=== PATIENT | male | born 1935 | race Caucasian/White ===

== ENCOUNTER → 2016-08-01 | Outpatient (CLI) | payer MEDICARE ==
[2016-05-10 11:57] VITALS: BP 108/71
[~2016-08-01] MED LIST: ALLO100T PO; ASPI325T4 PO; DOCU-27 PO; LISI1TAB3 PO; METO25TA4 PO; OMEP20CA9 PO; OXYB5TAB7 PO; OXYC1TAB7 PO; SIMV80TA3 PO
--- NOTE | 2016-08-01 11:34 | RAD ---
EXAM: Lumbar spine, 3 views. HISTORY: Fusion. COMPARISON: 05/09/2016. FINDINGS: Frontal, lateral and coned sacral views of the lumbar spine are obtained. There is instrumented posterior spinal fusion at L3 through L5. 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 There is degenerative endplate remodeling predominantly at L2-L3 and L5-S1. There is grade 1 anterolisthesis of L4 on L5. There is an ectatic atherosclerotic abdominal aorta. There are severe degenerative changes involving both hips. IMPRESSION: 1. Instrumented fusion at L3-L5. 2. Multilevel degenerative change, predominantly at L2-L3 and L5-S1. 3. Bycw-ru-jlzjowzx rotatory levoscoliosis and slight rightward lateral translation of L2 on L3.
== END | disposition home or self-care (01) ==
LOC: RAD 11:04
PROVIDERS: ATTEND Nurse Practitioner Adult Health
DX: M47.897 Other spondylosis, lumbosacral region (principal); I70.0 Atherosclerosis of aorta; I77.811 Abdominal aortic ectasia; M41.86 Other forms of scoliosis, lumbar region; Z98.1 Arthrodesis status
CPT/HCPCS: 72100

== ENCOUNTER → 2016-10-12 | Outpatient (CLI) | payer MEDICARE ==
[2016-05-10 11:57] VITALS: BP 108/71
--- NOTE | 2016-10-12 15:26 | CARD ---
APPROVED REPORT EXAM: Two-dimensional and M-mode echocardiogram with Doppler and color Doppler. Other Information Quality : FairHR: 75bpm Rhythm : NSR INDICATION Cardiomyopathy Surgery/Intervention CABD DIMENSIONS Left Atrium(2D)4.0 (1.6-4.0cm)IVSd1.1 (0.7-1.1cm) Aortic Root(2D)3.4 (2.0-3.7cm)LVDd3.4 (3.9-5.9cm) LVOT Diameter2.1 (1.8-2.4cm)PWd1.1 (0.7-1.1cm) LVDs2.3 (2.5-4.0cm)FS (%) 31.7 % SV28.6 mlLVEF(%)60.9 (>50%) Aortic Valve AoV Peak Piyush.178.4cm/sAoV VTI28.9cm AO Peak GR.12.7mmHgLVOT Peak Piyush.123.2cm/s LVOT VTI 23.59cmAO Mean GR.7mmHg HUNTER (VMAX)2.56ka5LWZ (VTI)2.81cm2 Mitral Valve MV E Aurufimv20.8cm/sMV DECEL QDRI577qz MV A Rduzkzci545.1cm/sMV OHH28nw E/A Ratio0.6MVA (PHT)2.77cm2 TDI E/Lateral E'7.4E/Medial E'10.7 Pulmonary Valve PV Peak Imvopvhm214.0cm/sPV Peak Grad.5mmHg Tricuspid Valve TR P. Tudwiwiz213rc/sRAP QDTHMUKU5rzHj TR Peak Gr.10mmHg Pulmonary Vein S1 Ahpkohoo39.3cm/sD2 Rgswhhew44.6cm/s LEFT VENTRICLE The left ventricle cavity is small. There is normal left ventricular wall thickness. Left ventricle s ystolic function is normal. The Ejection Fraction is 55%. There is normal LV segmental wall motion. T issue Doppler imaging reveals abnormal left ventricular diastolic dysfunction. Transmitral Doppler fl ow pattern is Grade I-abnormal relaxation pattern. RIGHT VENTRICLE The right ventricle is normal size. There is normal right ventricular wall thickness. The right ventr icular systolic function is normal. ATRIA The left atrium size is normal. The right atrium size is normal. The interatrial septum is intact wit h no evidence for an atrial septal defect or patent foramen ovale as noted on 2-D or Doppler imaging. AORTIC VALVE The aortic valve is calcified but opens well. Doppler and Color Flow revealed trace aortic regurgitat ion. There is no significant aortic valvular stenosis. MITRAL VALVE The mitral valve is normal in structure and function. There is no mitral valve stenosis. Doppler and Color Flow revealed no mitral valve regurgitation noted. TRICUSPID VALVE The tricuspid valve is normal in structure and function. Doppler and Color Flow revealed trace tricus pid regurgitation. The PA pressure was estimated at 13 mmHg. There is no tricuspid valve stenosis. PULMONIC VALVE PV not well visualized. Doppler and Color Flow revealed no pulmonic valvular regurgitation. There is no pulmonic valvular stenosis. GREAT VESSELS The aortic root is normal in size. Normal pulmonary venous flow (Doppler). The IVC was not well visua lized. PERICARDIAL EFFUSION There is no pleural effusion. There is no evidence of significant pericardial effusion. Critical Notification Critical Value: No <Conclusion> Left ventricle systolic function is normal. The Ejection Fraction is 55%. There is normal LV segmental wall motion. Transmitral Doppler flow pattern is Grade I-abnormal relaxation pattern. Trace aortic regurgitation. Trace tricuspid regurgitation. The PA pressure was estimated at 13 mmHg. There is no evidence of significant pericardial effusion.
== END | disposition home or self-care (01) ==
LOC: ECHO 12:36
PROVIDERS: ATTEND Internal Medicine Cardiovascular Disease
DX: I25.5 Ischemic cardiomyopathy (principal); I35.1 Nonrheumatic aortic (valve) insufficiency; I07.1 Rheumatic tricuspid insufficiency
CPT/HCPCS: 93306

== ENCOUNTER → 2017-07-14 | Outpatient (CLI) | payer MEDICARE ==
[2016-05-10 11:57] VITALS: BP 108/71
[~2017-07-14] MED LIST changes: -ASPI325T4 PO; +ASPI325T8 PO; +BUPIVACAINE 0.5% 50 ML VIAL. IJ ONE; +DOCU-109 PO; -DOCU-27 PO; +methylPREDNISolone ACETATE 80 MG/ML VIAL. IM ONE
--- NOTE | 2017-07-14 09:11 | RAD ---
Indication: Left hip pain. Patient presents for left hip injection. The patient was brought to the fluoroscopy suite and placed on the table in the supine position. The skin of the left hip was prepped and draped in the usual sterile fashion. A small amount of 1% lidocaine was utilized for local anesthesia. A 20-gauge spinal needle was advanced into the left hip and placed with its tip in an intracapsular location at the femoral head neck junction laterally. 80 mg of Depo-Medrol and 4 mL of 0.5% Sensorcaine was injected. The needle was withdrawn and hemostasis was obtained. Patient tolerated the procedure well and left the department in stable condition. 0.6 minutes of fluoroscopy time was utilized. A single image was obtained. 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 There is subchondral cyst formation and marginal osteophytes present. Patient did have a joint effusion with joint fluid returned through the injection needle. Impression: Left hip injection of steroid and Sensorcaine solution, using fluoroscopy.
== END | disposition home or self-care (01) ==
LOC: RAD 07:46
PROVIDERS: ATTEND Nurse Practitioner Gerontology
DX: M16.12 Unilateral primary osteoarthritis, left hip (principal)
CPT/HCPCS: 20605; 77002; J1040; J3490

== ENCOUNTER → 2017-09-26 | Outpatient (CLI) | payer MEDICARE | END | disposition home or self-care (01) | LOC: ECHO 12:24 | DX: I25.10 Atherosclerotic heart disease of native coronary artery without angina pectoris (principal) | CPT/HCPCS: 93306 ==

== ENCOUNTER → 2017-12-20 | Outpatient (CLI) | payer MEDICARE ==
[2017-12-20 14:15] LABS: ADD MAN DIFF? NO
[2017-12-20 14:18] LABS: BASO # 0.1 x10^3/uL (0.0-0.2); BASO % 1 % (0-3); EOS # 0.1 x10^3/uL (0.0-0.7); EOS % 1 % (0-3); HEMATOCRIT 42.7 % (39.0-53.0); HEMOGLOBIN 14.7 g/dL (13.0-17.5); LYMPH # 1.6 x10^3/uL (1.0-4.8); LYMPH % 24 % (24-48); MEAN CORPUSCULAR HEMOGLOBIN 32 pg (25-35); MEAN CORPUSCULAR HGB CONC 34 g/dL (31-37); MEAN CORPUSCULAR VOLUME 92 fL (79-100); MONO # 0.6 x10^3/uL (0.0-1.1); MONO % 9 % (0-9); NEUT # 4.4 x10^3uL (1.8-7.7); NEUT % 65 % (31-73); PLATELET COUNT 196 x10^3/uL (140-400); RED BLOOD COUNT 4.66 x10^6/uL (4.30-5.70); RED CELL DISTRIBUTION WIDTH 14.3 % (11.5-14.5); WHITE BLOOD COUNT 6.8 x10^3/uL (4.0-11.0)
[2017-12-20 14:25] LABS: BILIRUBIN,URINE NEGATIVE (NEG); CLARITY,URINE CLEAR; COLOR,URINE YELLOW; GLUCOSE,URINE NEGATIVE (NEG); NITRITE,URINE NEGATIVE (NEG); PH,URINE 5.5; PROTEIN,URINE NEGATIVE (NEG-TRACE)
[2017-12-20 14:27] LABS: ALBUMIN 3.6 g/dL (3.4-5.0); ANION GAP 8 (6-14); BLOOD UREA NITROGEN 33 mg/dL (8-26); CALCIUM 8.9 mg/dL (8.5-10.1); CARBON DIOXIDE 26 mmol/L (21-32); CHLORIDE 105 mmol/L (98-107); CREATININE 1.6 mg/dL (0.7-1.3); GFR 41.4; GLUCOSE 106 mg/dL (70-99); POTASSIUM 4.5 mmol/L (3.5-5.1); SODIUM 139 mmol/L (136-145)
[2017-12-20 14:48] LABS: BACTERIA,URINE 0 /HPF (0-FEW)
[2017-12-21 06:19] LABS: MRSA BY PCR Negative (Negative)
== END | disposition home or self-care (01) ==
LOC: SURGPAT 12:40
DX: Z01.818 Encounter for other preprocedural examination (principal); M16.12 Unilateral primary osteoarthritis, left hip
CPT/HCPCS: 36415; 71046; 80048; 81001; 82040; 85025; 87086; 87641; 93005

== ENCOUNTER → 2018-08-02 | Outpatient (CLI) | payer MEDICARE ==
[2018-01-05 11:00] VITALS: BP 101/62
[~2018-08-02] MED LIST changes: -BUPIVACAINE 0.5% 50 ML VIAL. IJ ONE; +OMEP20CA10 PO; -OMEP20CA9 PO; +SIMV80TA17 PO; -SIMV80TA3 PO; -methylPREDNISolone ACETATE 80 MG/ML VIAL. IM ONE
--- NOTE | 2018-08-02 15:26 | RAD ---
MR#: [id number] Date of Study: 08/02/2018 Ordering Physician: KALEB MC, Referring Physician: KALEB MC, Tech: LAWANDA Villavicencio, RDMS, RTR APPROVED REPORT Patient Location : OUT-PATIENT Indications Lower Extremity Edema : Bilateral Grayscale images of the bilateral greater and lesser saphenous veins do not reveal any obvious eviden ce of thrombus. The right great saphenous vein measures approximately 4 mm and does not show any evidence of reflux. The left great saphenous vein measures approximately 5 mm and does not show any evidence of reflux. Bilateral lesser saphenous veins do not show any evidence of reflux. Past History GSV Harvesting for CABG : Left GSV Medications Aspirin Critical Notification Critical Value: No <Conclusion> No evidence of reflux in the bilateral greater and lesser saphenous veins. Signed by : Mitul Amin, Electronically Approved : 08/02/2018 15:24:24
== END | disposition home or self-care (01) ==
LOC: KCIC US 11:48
PROVIDERS: ATTEND Internal Medicine Cardiovascular Disease
DX: R60.0 Localized edema (principal)
CPT/HCPCS: 93970

== ENCOUNTER → 2019-02-21 | Outpatient (CLI) | payer MEDICARE ==
[2018-01-05 11:00] VITALS: BP 101/62
--- NOTE | 2019-02-21 11:07 | CARD ---
MR#: [id number] Date of Study: 02/21/2019 Ordering Physician: KALEB MC, Referring Physician: KALEB MC, Tech: Chantelle Sanchez APPROVED REPORT EXAM: Two-dimensional and M-mode echocardiogram with Doppler and color Doppler. Other Information Quality : FairHR: 67bpm Technically limited study due to body habitus. INDICATION CAD Surgery/Intervention CABG: RISK FACTORS Hypertension 2D DIMENSIONS Left Atrium(2D)4.4 (1.6-4.0cm)IVSd1.4 (0.7-1.1cm) Aortic Root(2D)3.7 (2.0-3.7cm)LVDd4.5 (3.9-5.9cm) LVOT Diameter2.1 (1.8-2.4cm)PWd1.4 (0.7-1.1cm) LVDs2.8 (2.5-4.0cm)FS (%) 37.7 % SV62.4 mlLVEF(%)67.9 (>50%) Aortic Valve AoV Peak Piyush.215.4cm/sAoV VTI43.9cm AO Peak GR.18.6mmHgLVOT Peak Piyush.106.0cm/s LVOT VTI 24.62cmAO Mean GR.10mmHg HUNTER (VMAX)1.11bw0BCT (VTI)1.93cm2 Mitral Valve MV E Cajpyxfm94.6cm/sMV DECEL RENN582jp MV A Jmiixybx96.5cm/sMV ZDU39zl E/A Ratio0.8MVA (PHT)2.26cm2 TDI E/Lateral E'8.0E/Medial E'9.8 Pulmonary Valve PV Peak Mhheofgh476.2cm/sPV Peak Grad.6mmHg Tricuspid Valve RAP VDVIGRYV1xdTg Pulmonary Vein S1 Lapvlpli95.1cm/sD2 Bkaqhgam82.2cm/s PVa bpdvtcwk007fzgf LEFT VENTRICLE The left ventricle is normal size. There is mild to moderate concentric left ventricular hypertrophy. The left ventricular systolic function is normal and the ejection fraction is within normal range. T he Ejection Fraction is 50-55%. There is normal LV segmental wall motion. Transmitral Doppler flow pa ttern is Grade I-abnormal relaxation pattern. RIGHT VENTRICLE The right ventricle is normal size. There is normal right ventricular wall thickness. The right ventr icular systolic function is normal. ATRIA The left atrium is mildly dilated. The right atrium size is normal. The interatrial septum is intact with no evidence for an atrial septal defect or patent foramen ovale as noted on 2-D or Doppler imagi ng. AORTIC VALVE The aortic valve is calcified and displays decreased opening. Doppler and Color Flow revealed no sign ificant aortic regurgitation. There is no significant aortic valvular stenosis. MITRAL VALVE Mitral annular calcification is mild. There is no evidence of mitral valve prolapse. There is no mitr al valve stenosis. Doppler and Color Flow revealed no mitral valve regurgitation noted. TRICUSPID VALVE The tricuspid valve is normal in structure and function. Doppler and Color Flow revealed trace tricus pid regurgitation. There is no tricuspid valve stenosis. PULMONIC VALVE The pulmonic valve is not well visualized. Doppler and Color Flow revealed no pulmonic valvular regur gitation. There is no pulmonic valvular stenosis. GREAT VESSELS The aortic root is normal in size. The IVC was not well visualized. PERICARDIAL EFFUSION There is no evidence of significant pericardial effusion. Critical Notification Critical Value: No <Conclusion> The left ventricular systolic function is normal and the ejection fraction is within normal range. Th e Ejection Fraction is 50-55%. There is normal LV segmental wall motion. Technically difficult study. Signed by : Mitul Amin, Electronically Approved : 02/21/2019 11:06:47
== END | disposition home or self-care (01) ==
LOC: ECHO 09:34
PROVIDERS: ATTEND Internal Medicine Cardiovascular Disease
DX: I08.0 Rheumatic disorders of both mitral and aortic valves (principal); I25.10 Atherosclerotic heart disease of native coronary artery without angina pectoris
CPT/HCPCS: 93306

== ENCOUNTER 2019-08-19 15:18 | Emergency (ER) | payer MEDICARE ==
[~2019-08-19] VITALS: Ht 177.8 cm; Wt 109.0 kg
[~2019-08-19 15:18] MED LIST changes: +LISI1TAB23 PO; -LISI1TAB3 PO; -OMEP20CA10 PO; +OMEP20CA16 PO; +OXYB5TAB10 PO; -OXYB5TAB7 PO
[2019-08-19 17:27] LABS: BASO # 0.1 x10^3/uL (0.0-0.2); BASO % 1 % (0-3); EOS # 0.1 x10^3/uL (0.0-0.7); EOS % 1 % (0-3); HEMATOCRIT 43.1 % (39.0-53.0); HEMOGLOBIN 14.1 g/dL (13.0-17.5); LYMPH # 1.8 x10^3/uL (1.0-4.8); LYMPH % 21 % (24-48); MEAN CORPUSCULAR HEMOGLOBIN 30 pg (25-35); MEAN CORPUSCULAR HGB CONC 33 g/dL (31-37); MEAN CORPUSCULAR VOLUME 92 fL (79-100); MONO # 0.7 x10^3/uL (0.0-1.1); MONO % 8 % (0-9); NEUT # 6.1 x10^3/uL (1.8-7.7); NEUT % 70 % (31-73); PLATELET COUNT 240 x10^3/uL (140-400); RED BLOOD COUNT 4.71 x10^6/uL (4.30-5.70); RED CELL DISTRIBUTION WIDTH 14.9 % (11.5-14.5); WHITE BLOOD COUNT 8.8 x10^3/uL (4.0-11.0)
[2019-08-19 17:37] LABS: PROTHROMBIN TIME PATIENT 12.8 SEC (11.7-14.0)
--- NOTE | 2019-08-19 17:43 | RAD ---
CT HEAD WO CONTRAST History: Weakness Comparison: None. Technique: Noncontrast CT imaging was performed of the head. Exposure: One or more of the following individualized dose reduction techniques were utilized for this examination: 1. Automated exposure control 2. Adjustment of the mA and/or kV according to patient size 3. Use of iterative reconstruction technique. Findings: No intracranial hemorrhage. No mass effect. No hydrocephalus. Mild brain parenchymal volume loss. Mild foci of decreased attenuation within the hemispheric white matter, most often due to chronic microvascular ischemia. Imaged orbits are unremarkable. Imaged paranasal sinuses and mastoid air cells are clear. No acute calvarial fracture. Impression: 1. No acute intracranial abnormality. Electronically signed by: Maycol Alberto DO (08/19/2019 5:40 PM) [facility]
[2019-08-19 17:46] LABS: CALCIUM 8.9 mg/dL (8.5-10.1); CREATININE 1.5 mg/dL (0.7-1.3); GFR 44.5; POTASSIUM 4.8 mmol/L (3.5-5.1)
--- NOTE | 2019-08-19 17:53 | PHYS DOC ---
Past Medical History Past Medical History: GERD, High Cholesterol, Hypertension, Other Additional Past Medical Histor: GOUT Past Surgical History: Hip Replacement Alcohol Use: None Adult General Chief Complaint Chief Complaint: WEAKNESS/GENERALIZED HPI HPI Patient is a 83 year old history of hypertension, dyslipidemia, gout, GERD who presents with complaint of weakness. Patient complaining of generalized weakness and not feeling good for the last 1 week as a constant problem that gradually getting worse. Patient states he has problems with his balance in the morning that gradually improved as day goes on without headache, focal neuro deficit, fever and chills, chest pain, shortness of breath, URI symptoms, diarrhea and constipation, urinary symptom, nausea and vomiting. Review of Systems Review of Systems Constitutional: Denies fever or chills [] Eyes: Denies change in visual acuity, redness, or eye pain [] HENT: Denies nasal congestion or sore throat [] Respiratory: Denies cough or shortness of breath [] Cardiovascular: No additional information not addressed in HPI [] GI: Denies abdominal pain, nausea, vomiting, bloody stools or diarrhea [] : Denies dysuria or hematuria [] Musculoskeletal: Denies back pain or joint pain [] Integument: Denies rash or skin lesions [] Neurologic: Denies headache, focal weakness or sensory changes [] Endocrine: Denies polyuria or polydipsia [] All other systems were reviewed and found to be within normal limits, except as documented in this note. Allergies Allergies Allergies Coded Allergies Type Severity Reaction Last Updated Verified No Known Drug Allergies 01/02/18 No Physical Exam Physical Exam Constitutional: Well developed, well nourished, no acute distress, non-toxic appearance. [] HENT: Normocephalic, atraumatic, bilateral external ears normal, oropharynx moist, no oral exudates, nose normal. [] Eyes: PERRLA, EOMI, conjunctiva normal, no discharge. [] Neck: Normal range of motion, no tenderness, supple, no stridor. [] Cardiovascular:Heart rate regular rhythm, no murmur [] Lungs & Thorax: Bilateral breath sounds clear to auscultation [] Abdomen: Bowel sounds normal, soft, no tenderness, no masses, no pulsatile masses. [] Skin: Warm, dry, no erythema, no rash. [] Back: No tenderness, no CVA tenderness. [] Extremities: No tenderness, no cyanosis, no clubbing, ROM intact, no edema. [] Neurologic: Alert and oriented X 3, normal motor function, normal sensory function, no focal deficits noted. [] Psychologic: Affect normal, judgement normal, mood normal. [] Current Patient Data Vital Signs Vital Signs Date Time Temp Pulse Resp B/P (MAP) Pulse Ox O2 Delivery O2 Flow Rate FiO2 08/19/19 16:30 98.0 77 17 179/92 (121) 98 Room Air 98.0 Lab Values Laboratory Tests Test 08/19/19 16:45 White Blood Count 8.8 x10^3/uL (4.0-11.0) Red Blood Count 4.71 x10^6/uL (4.30-5.70) Hemoglobin 14.1 g/dL (13.0-17.5) Hematocrit 43.1 % (39.0-53.0) Mean Corpuscular Volume 92 fL (79-100) Mean Corpuscular Hemoglobin 30 pg (25-35) Mean Corpuscular Hemoglobin Concent 33 g/dL (31-37) Red Cell Distribution Width 14.9 % (11.5-14.5) H Platelet Count 240 x10^3/uL (140-400) Neutrophils (%) (Auto) 70 % (31-73) Lymphocytes (%) (Auto) 21 % (24-48) L Monocytes (%) (Auto) 8 % (0-9) Eosinophils (%) (Auto) 1 % (0-3) Basophils (%) (Auto) 1 % (0-3) Neutrophils # (Auto) 6.1 x10^3/uL (1.8-7.7) Lymphocytes # (Auto) 1.8 x10^3/uL (1.0-4.8) Monocytes # (Auto) 0.7 x10^3/uL (0.0-1.1) Eosinophils # (Auto) 0.1 x10^3/uL (0.0-0.7) Basophils # (Auto) 0.1 x10^3/uL (0.0-0.2) Prothrombin Time 12.8 SEC (11.7-14.0) Prothrombin Time INR 1.0 (0.8-1.1) Activated Partial Thromboplast Time 26 SEC (24-38) Laboratory Tests 08/19/19 16:45 EKG EKG EKG interpreted by me. EKG at 1541 showed sinus treated with rate of 69, prolonged UT at 2:30, left fourth axis, RVH with repolarization abnormality, no acute ST and T-wave elevation. Radiology/Procedures Radiology/Procedures [] Course & Med Decision Making Course & Med Decision Making Pertinent Labs and Imaging studies are pending. Evaluation of patient in ER showed 83-year-old male patient with complaining of generalized weakness for 1 week without other symptom. Labs and CT and chest x- ray is pending. Sign out given to at 1800 for further evaluation and final disposition. Discussed current findings and plan with patient and family, who acknowledge understanding and agreement. Dragon Disclaimer Dragon Disclaimer This electronic medical record was generated, in whole or in part, using a voice recognition dictation system. Departure Departure Impression: Primary Impression: Generalized weakness Referrals: BERNADETTE RINCON MD (PCP) MICHELLE ERAZO MD Aug 19, 2019 17:53
[2019-08-19 18:03] LABS: ALBUMIN 3.5 g/dL (3.4-5.0); TOTAL PROTEIN 6.9 g/dL (6.4-8.2)
--- NOTE | 2019-08-19 18:15 | RAD ---
PORTABLE CHEST 1V History: Weakness. Comparison: December 20, 2017 Findings: Multifocal calcified pleural plaques. No consolidation. No pleural effusion. Prior median sternotomy. Unchanged heart size. No pneumothorax. Impression: 1. No acute cardiopulmonary process. 2. Multifocal calcified pleural plaques, can be seen with prior asbestos exposure. Electronically signed by: Maycol Alberto DO (08/19/2019 6:12 PM) [facility]
[2019-08-19 20:23] LABS: BILIRUBIN,URINE NEGATIVE (NEG); CLARITY,URINE CLEAR; COLOR,URINE YELLOW; NITRITE,URINE NEGATIVE (NEG); PH,URINE 5.5; PROTEIN,URINE NEGATIVE (NEG-TRACE)
[2019-08-19 20:33] LABS: BACTERIA,URINE 0 /HPF (0-FEW); RBC,URINE OCC /HPF (0-2); SQUAMOUS EPITHELIAL CELL,UR FEW /LPF
[2019-08-19 21:51] VITALS: BP 126/80
--- NOTE | 2019-08-20 07:08 | EKG ---
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
== END 2019-08-19 21:57 | disposition home or self-care (01) ==
LOC: ER 15:18
DX: R53.1 Weakness (principal); R51 Headache; E78.00 Pure hypercholesterolemia, unspecified; I10 Essential (primary) hypertension; M10.9 Gout, unspecified; K21.9 Gastro-esophageal reflux disease without esophagitis
CPT/HCPCS: 36415; 70450; 71045; 80053; 81001; 82550; 83605; 83690; 83735; 83880; 84484; 85025; 85610; 85730; 87040; 87086; 93005; 99285-25

== ENCOUNTER → 2019-08-22 | Outpatient (CLI) | payer MEDICARE ==
[2019-08-19 21:51] VITALS: BP 126/80
[~2019-08-22] MED LIST changes: +REGADENOSON 0.4 MG/5 ML DISP.SYRIN. IV ONE
--- NOTE | 2019-08-26 11:58 | RAD ---
MR#: [id number] Date of Study: 08/22/2019 Ordering Physician: KALEB MC, Referring Physician: SHALOM DONOVAN Tech: SAMANTHA Bush, ARRT (R) (N) APPROVED REPORT Test Type: Pharmacological Stress Nurse/Tech: Marsha Damon R.N. Test Indications: CAD Cardiac History: Hypertension. Bypass Medications: See Electronic Medical Record Medical History: See Electronic Medical Record Resting ECG: NSR with RBBB. Occ PVC Resting Heart Rate: 68 bpm Resting Blood Pressure: 137/66mmHg Pretest Chest Pain: No chest pain Nurse/Tech Notes S1S2, lungs sound clear Consent: The procedure was explained to the patient in lay terms. Informed consent was witnessed. Jorge eout was entered into [employer]. History and Stress Test performed by Marsha Damon R.N. Pharm. Details Pharmacologic stress testing was performed using 0.4mg per 5ml of regadenoson given intravenously ove r 7-10 seconds. Stress Symptoms No chest pain or symptoms. POST EXERCISE Reason for Termination: Infusion complete Target HR: 114 Max HR: 80 bpm Max Blood Pressure: 147/58mmHg Blood Pressure response to exercise: Normal blood pressure response during stress. Chest Pain: No. Arrhythmia: Yes. occ. PVC ST Change: No. INTERPRETATION Stress EKG Conclusion: Baseline EKG showed sinus rhythm. No ischemic changes at peak stress. Few PV C's without any significant arrhythmias. Imaging Protocol IMAGE PROTOCOL: Rest Tc-99m/stress Tc-99m 1 day Rest: Stress: Viability: Radiopharm.Tc99m ZknsxavsfQi97g Sestamibi Nviw34cVl 34mCi Img Date 08/22/2019 08/22/2019 Inj-Img Zczb71ijp. 75min. Rest Admin Site:Hearing Aide Technician:RT Donal (R)(N) Stress Admin Site: Hearing Aide Technician: RT Donal (R)(N) STRESS DATA End Diast. Vol.73.0mlAv. Heart Rate76.0bpm End Syst. Vol.22.5mlCO Index BSA3.8L/min Myocardial Jave990.0gEject. Jpteihet02.0% Stress Rates Pk. Fill Rate3.04EDV/secLVtime Pk. Fill 185.16msec Pk. Empty Rate3.62ESV/secLVtime Pk. Vrnzm809.04msec 1/3 Pk. Fill0.76EDV/sec Stress Scores Regional WT0.50Summed WT8.50 Regional WM0.00Summed WM6.50 LV Perfusion Scintigraphic images were technically difficult but showed small to moderate predominantly fixed defe ct involving the base to mid inferior wall consistent with previous myocardial infarction with small amount of reversibility consistent with harinder-infarct ischemia. Wall Motion Unable to assess LVEF due to technically difficult nature of the images. LV Perf. Quant 17 Seg. SSS14.00 17 Seg. SRS9.50 17 Seg. SDS6.00 Stress Defect Extent (% LAD)4.70Rest Defect Extent (% LAD)1.60Rev. Defect Extent (% LAD)3.45 Stress Defect Extent (% LCX) 55.65Rest Defect Extent (% LCX)50.00Rev. Defect Extent (% LCX)16.90 Stress Defect Extent (% RCA)37.75Rest Defect Extent (% RCA)15.00Rev. Defect Extent (% RCA)27.75 Stress Defect Extent (% JEREMIAS)26.30Rest Defect Extent (% JEREMIAS)16.20Rev. Defect Extent (% JEREMIAS)14.90 Conclusion 1. Regadenoson cardioisotope stress test was technically difficult but appeared to show small to mode rate infarct involving the base to mid inferior wall with small amount of harinder-infarct ischemia. 2. Unable to assess LVEF due to poor quality gated images. Signed by : Kaleb Mc, Electronically Approved : 08/23/2019 11:20:12
== END | disposition home or self-care (01) ==
LOC: NM 10:03
PROVIDERS: ATTEND Internal Medicine Cardiovascular Disease
DX: I49.3 Ventricular premature depolarization (principal); I25.89 Other forms of chronic ischemic heart disease; I25.10 Atherosclerotic heart disease of native coronary artery without angina pectoris; I10 Essential (primary) hypertension; I45.10 Unspecified right bundle-branch block; I25.2 Old myocardial infarction
CPT/HCPCS: 78452; 93017; A9500; J2785

== ENCOUNTER → 2020-02-20 | Outpatient (CLI) | payer MEDICARE ==
[~2020-02-20] MED LIST changes: -REGADENOSON 0.4 MG/5 ML DISP.SYRIN. IV ONE
--- NOTE | 2020-02-20 14:18 | CARD ---
MR#: [id number] Date of Study: 02/20/2020 Ordering Physician: KALEB MC, Referring Physician: KALEB MC Tech: Nette Porter RDCS APPROVED REPORT EXAM: Two-dimensional and M-mode echocardiogram with Doppler and color Doppler. Other Information Quality : Fair Technically limited study due to body habitus. INDICATION Cardiac Disease: CAD 2D DIMENSIONS Left Atrium(2D)4.7 (1.6-4.0cm)IVSd0.9 (0.7-1.1cm) Aortic Root(2D)3.6 (2.0-3.7cm)LVDd4.8 (3.9-5.9cm) LVOT Diameter2.5 (1.8-2.4cm)PWd1.1 (0.7-1.1cm) LVDs3.2 (2.5-4.0cm)FS (%) 32.2 % SV64.3 mlLVEF(%)60.3 (>50%) Aortic Valve AoV Peak Piyush.194.3cm/sAoV VTI40.7cm AO Peak GR.15.1mmHgLVOT Peak Piyush.120.7cm/s AO Mean GR.8mmHgAVA (VMAX)2.99cm2 HUNTER (VTI)3.20cm2 Mitral Valve MV E Eaehhnwy14.1cm/sMV DECEL HRML608xh MV A Rgzaabhq683.8cm/sE/A Ratio0.7 Pulmonary Vein S1 Tuprthlq86.1cm/sD2 Eecayxug24.4cm/s LEFT VENTRICLE The left ventricle is normal size. There is normal left ventricular wall thickness. The left ventricu lar systolic function is normal and the ejection fraction is within normal range. The Ejection Fracti on is 55-60%. There is normal LV segmental wall motion. Transmitral Doppler flow pattern is Grade I-a bnormal relaxation pattern. RIGHT VENTRICLE The right ventricle is normal size. The right ventricular systolic function is normal. ATRIA The left atrium is mildly dilated. The right atrium size is normal. The interatrial septum is intact with no evidence for an atrial septal defect or patent foramen ovale as noted on 2-D or Doppler imagi ng. AORTIC VALVE The aortic valve is not well visualized but it appears heavily calcified with restricted leaflet sol on. Doppler and Color Flow revealed no significant aortic regurgitation. There is no significant aort ic valvular stenosis. MITRAL VALVE The mitral valve is calcified but opens well. Mitral annular calcification is mild. There is no evide nce of mitral valve prolapse. There is no mitral valve stenosis. Doppler and Color-flow revealed trac e mitral regurgitation. TRICUSPID VALVE The tricuspid valve is normal in structure and function. Doppler and Color Flow revealed no tricuspid valve regurgitation noted. There is no tricuspid valve stenosis. PULMONIC VALVE The pulmonic valve is not well visualized. Doppler and Color Flow revealed trace to mild pulmonic heather vular regurgitation. There is no pulmonic valvular stenosis. GREAT VESSELS The aortic root is normal in size. The ascending aorta is not well seen. The IVC was not visualized. PERICARDIAL EFFUSION There is no evidence of significant pericardial effusion. Critical Notification Critical Value: No <Conclusion> The left ventricular systolic function is normal and the ejection fraction is within normal range. Th e Ejection Fraction is 55-60%. There is normal LV segmental wall motion. The aortic valve is not well visualized but it appears heavily calcified with restricted leaflet sol on. There is no significant aortic valvular stenosis. Signed by : Mitul Amin, Electronically Approved : 02/20/2020 14:17:43
== END | disposition home or self-care (01) ==
LOC: ECHO 10:28
PROVIDERS: ATTEND Internal Medicine Cardiovascular Disease
DX: I08.8 Other rheumatic multiple valve diseases (principal); I25.10 Atherosclerotic heart disease of native coronary artery without angina pectoris
CPT/HCPCS: 93306